=== PATIENT | male | born 1965 | race Caucasian/White ===

== ENCOUNTER 2017-03-12 15:21 | Emergency (ER) | payer MEDICARE ==
[2017-03-12 15:56] VITALS: BP 165/93
--- NOTE | 2017-03-12 16:49 | ED Physician Documentation ---
History of Present Illness - Stated complaint Stated Complaint: FLU SYMPTOMS - Chief complaint Chief Complaint: General - Additonal information Additional information: hx from pt 51 male fever cough congestion body aches fatigue no sick contacts no travel has COPD never admitted for COPD using his rescue inhaler a few times a day Review of Systems Constitutional: reports: Fever, Chills, Myalgias Nose: reports: Congestion Respiratory: reports: Cough GI: denies: Abdominal Pain Endocrine: denies: Easy bruising / bleeding Immunocompromised: denies: Immunocompromised PD PAST MEDICAL HISTORY - Past Medical History Past Medical History: Yes Respiratory: COPD Endocrine/Autoimmune: Type 2 diabetes Musculoskeletal: Osteoporosis, Gout - Past Surgical History Past Surgical History: Yes General: Appendectomy, Hiatal hernia repair - Present Medications Home Medications: Ambulatory Orders Medication Instructions Recorded Confirmed Benzonatate [Tessalon] 100 mg PO TID PRN #20 capsule 03/12/17 guaiFENesin/DEXTROMETHORPHAN 10 ml PO Q6H PRN #120 ml 03/12/17 [Robitussin Dm] predniSONE [Deltasone] 60 mg PO DAILY 5 Days tablet 03/12/17 - Allergies Allergies/Adverse Reactions: Allergies Allergy/AdvReac Type Severity Reaction Status Date / Time No Known Drug Allergies Allergy Verified 03/12/17 15:56 - Social History Does the pt smoke?: No Smoking Status: Never smoker Does the pt drink ETOH?: No Does the pt have substance abuse?: No - Immunizations Immunizations are current?: Yes - POLST Patient has POLST: No PD ED PE NORMAL - Vitals Vital signs reviewed: Yes - General General: Alert and oriented X 3 - HEENT HEENT: Atraumatic. No: Ears normal (dull but not bulging or erythematous), Pharynx benign (mild erythema 2/2 cough, no exudate or swelling) - Neck Neck: Supple, no meningeal sign - Cardiac Cardiac: RRR - Respiratory Respiratory: No respiratory distress, Clear bilaterally - Abdomen Abdomen: Soft, Non tender - Derm Derm: Normal color - Neuro Neuro: Alert and oriented X 3 Results - Vitals Vitals: Vital Signs - 24 hr 03/12/17 15:51 Temperature 36 C L Heart Rate 93 Respiratory 20 Rate Blood Pressure 165/93 H O2 Saturation 97 Oxygen O2 Source Room air - Labs Labs: Laboratory Tests 03/12/17 16:00 Influenza A (Rapid) Negative Influenza B (Rapid) Negative Influenza Types A,B Ag - - Rads (name of study) CXR Radiology: See rad report (no acute) Departure - Departure Disposition: 01 Home, Self Care Clinical Impression: Viral URI with cough, COPD exacerbation Condition: Good Instructions: ED Viral Syndrome, ED COPD Flare Follow-Up: YUNIOR GONZALEZ [Primary Care Provider] - Prescriptions: Benzonatate [Tessalon] 100 mg PO TID PRN #20 capsule PRN Reason: to ease cough guaiFENesin/DEXTROMETHORPHAN [Robitussin Dm] 10 ml PO Q6H PRN #120 ml PRN Reason: Cough predniSONE [Deltasone] 60 mg PO DAILY 5 Days tablet Comments: The chest xray does not show pneumonia and the flu swabs were negative Your symptoms are likely due to a virus - this does not make you any less ill but means antibiotics will not help. I have prescribed medications to ease your symptoms and keep your COPD under control You should also use your albuterol inhaler every 6 hr until your cough is better Forms: Activity restrictions
--- NOTE | 2017-03-12 17:02 | XRAY Preliminary Report ---
Exam: XR CHEST 2 VIEW PA/LAT IMPRESSION: Normal 2-view chest radiography. [facility] SITE ID: [id number]
--- NOTE | 2017-03-12 17:09 | XRAY Report ---
EXAM: CHEST RADIOGRAPHY EXAM DATE: 03/12/2017 04:49 PM. CLINICAL HISTORY: Productive cough for 2 days. COMPARISON: None. TECHNIQUE: 2 views. FINDINGS: Lungs/Pleura: No focal opacities evident. No pleural effusion. No pneumothorax. Normal volumes. Mediastinum: Heart and mediastinal contours are unremarkable. Other: None. IMPRESSION: Normal 2-view chest radiography. [facility] Referring Provider Line: [phone] SITE ID: [id number]
== END 2017-03-12 17:30 | disposition home or self-care (01) ==
LOC: ED 15:21
DX: J06.9 Acute upper respiratory infection, unspecified (principal); B97.89 Other viral agents as the cause of diseases classified elsewhere; R05 Cough; J44.1 Chronic obstructive pulmonary disease with (acute) exacerbation; E11.9 Type 2 diabetes mellitus without complications
CPT/HCPCS: 71020; 87275; 87276; 99283

== ENCOUNTER 2018-03-21 14:38 | Outpatient (CLI) | payer MEDICARE | END 2018-03-21 14:39 | disposition critical access hospital (66) | LOC: EMS 14:38 | PROVIDERS: ATTEND Surgery | DX: R07.9 Chest pain, unspecified (principal) | CPT/HCPCS: A0425; A0427 ==

== ENCOUNTER 2018-11-12 07:07 | Day surgery (SDC) | payer MEDICARE ==
[2018-11-12] MEDS ORDERED: LACTATED RINGERS 1,000 ML IV ONE (07:39)
[2018-11-12] MEDS ORDERED: fentaNYL 250 MCG/5 ML VIAL IVP ONE (09:39)
[2018-11-12] MEDS ORDERED: MIDAZOLAM 2 MG/2 ML VIAL IVP ONE (09:39)
[2018-11-12 10:21] VITALS: BP 122/79
== END 2018-11-12 07:08 | disposition home or self-care (01) ==
LOC: SDS 07:07
PROVIDERS: ATTEND Internal Medicine Gastroenterology
PROC: 0DBN8ZZ Excision of Sigmoid Colon, Via Natural or Artificial Opening Endoscopic (ICD-10-PCS; 2018-11-12)
PROC: 0DBM8ZZ Excision of Descending Colon, Via Natural or Artificial Opening Endoscopic (ICD-10-PCS; 2018-11-12)
PROC: 0DBL8ZZ Excision of Transverse Colon, Via Natural or Artificial Opening Endoscopic (ICD-10-PCS; 2018-11-12)
PROC: 0DBH8ZX Excision of Cecum, Via Natural or Artificial Opening Endoscopic, Diagnostic (ICD-10-PCS; principal; 2018-11-12 08:30)
DX: Z12.11 Encounter for screening for malignant neoplasm of colon (principal); D12.4 Benign neoplasm of descending colon; D12.5 Benign neoplasm of sigmoid colon; D12.3 Benign neoplasm of transverse colon; K64.5 Perianal venous thrombosis; K63.9 Disease of intestine, unspecified; K57.30 Diverticulosis of large intestine without perforation or abscess without bleeding; E11.9 Type 2 diabetes mellitus without complications; J44.9 Chronic obstructive pulmonary disease, unspecified; I10 Essential (primary) hypertension; K43.2 Incisional hernia without obstruction or gangrene; F17.210 Nicotine dependence, cigarettes, uncomplicated; E66.9 Obesity, unspecified; Z68.30 Body mass index [BMI] 30.0-30.9, adult
CPT/HCPCS: 45380; 45385; J7120

== ENCOUNTER 2018-12-06 14:25 | Outpatient (CLI) | payer MEDICARE, MEDICAID ==
[2018-12-06 14:36] LABS: BASOPHILS # (AUTO) 0.1 10^3/uL (0.0-0.1); BASOPHILS % (AUTO) 0.8 %; EOSINOPHILS # (AUTO) 0.1 10^3/uL (0.0-0.7); EOSINOPHILS % (AUTO) 1.5 %; HGB - HEMOGLOBIN 14.1 g/dL (14.0-18.0); LYMPHOCYTES # (AUTO) 3.2 10^3/uL (1.5-3.5); LYMPHOCYTES % (AUTO) 36.3 %; MEAN CORPUSCULAR HEMOGLOBIN 30.6 pg (27.0-31.0); MEAN CORPUSCULAR VOLUME 92.6 fL (80.0-94.0); MEAN PLATELET VOLUME 8.9 fL (7.4-11.4); MONOCYTES # (AUTO) 0.6 10^3/uL (0.0-1.0); MONOCYTES % (AUTO) 6.6 %; NEUTROPHILS # (AUTO) 4.7 10^3/uL (1.5-6.6); NEUTROPHILS % (AUTO) 53.7 %; PLT - PLATELET COUNT 275 10^3/uL (130-450); RED BLOOD COUNT 4.61 10^6/uL (4.70-6.10); RED CELL DISTRIBUTION WIDTH 12.6 % (12.0-15.0); WHITE BLOOD COUNT 8.8 x10^3/uL (4.8-10.8)
[2018-12-06 14:53] LABS: BILIRUBIN,URINE NEGATIVE (NEGATIVE); GLUCOSE, URINE (UA) NEGATIVE (NEGATIVE); KETONES,URINE (UA) NEGATIVE (NEGATIVE); LEUKOCYTE ESTERASE, URINE NEGATIVE (NEGATIVE); NITRITE,URINE NEGATIVE (NEGATIVE); OCCULT BLOOD,URINE NEGATIVE (NEGATIVE); PH,URINE 5.5 PH (5.0-7.5); PROTEIN,URINE 30 mg/dL (NEGATIVE); UROBILINOGEN,URINE 0.2 (NORMAL) E.U./dL (NORMAL)
[2018-12-06 14:59] LABS: ALBUMIN 4.3 g/dL (3.2-5.5); ALBUMIN/GLOBULIN RATIO 1.3 (1.0-2.2); BILIRUBIN,TOTAL 0.3 mg/dL (0.2-1.0); CALCIUM 9.4 mg/dL (8.5-10.3); CLARITY,URINE CLEAR (CLEAR); CREATININE 0.5 mg/dL (0.6-1.2); TOTAL PROTEIN 7.5 g/dL (6.7-8.2)
[2018-12-06 15:13] LABS: BACTERIA,URINE None Seen /HPF (None Seen); RBC,URINE None Seen /HPF (0-5); SQUAMOUS EPITHELIAL CELL,UR NONE SEEN (<= Few)
== END 2018-12-06 14:26 | disposition home or self-care (01) ==
LOC: LAB 14:25
PROVIDERS: ATTEND Internal Medicine Gastroenterology
DX: E11.9 Type 2 diabetes mellitus without complications (principal)
CPT/HCPCS: 36415; 80053; 81001; 85025

== ENCOUNTER 2018-12-14 12:09 | Outpatient (CLI) | payer MEDICARE ==
--- NOTE | 2018-12-15 15:41 | XRAY Report ---
Reason: RIGHT KNEE PAIN Procedure Date: 12/14/2018 Accession Number: [id number] / [id number] Procedure: XR - Knee 2 View RT CPT Code: FULL RESULT: EXAM: RIGHT KNEE RADIOGRAPHY. EXAM DATE: 12/14/2018 12:37 PM. CLINICAL HISTORY: Right knee pain. COMPARISON: None. TECHNIQUE: 2 views. FINDINGS: Bones: Normal. No fractures or bone lesions. Joints: Mild degenerative joint disease in all 3 compartments. No effusion. Soft Tissues: Normal. No soft tissue swelling. IMPRESSION: Mild degenerative joint disease. No fracture or effusion. [facility]
== END 2018-12-14 12:10 | disposition home or self-care (01) ==
LOC: DI 12:09
PROVIDERS: ATTEND Physician Assistant Medical
DX: M17.11 Unilateral primary osteoarthritis, right knee (principal)

== ENCOUNTER 2018-12-16 07:55 | Day surgery (SDC) | payer MEDICARE ==
--- NOTE | 2018-12-16 08:11 | ANESTHESIA ---
Pre-Anesthesia VS, & Labs - Diagnosis ventral incision hernia - Procedure Open ventral hernia repair w/mesh Height 5 ft 5 in Body Mass Index 33.3 - NPO >8 hours - Lab Results Lab results reviewed: Yes Home Medications and Allergies Home Medications: Ambulatory Orders Albuterol 1 puffs IH DAILY PRN 12/16/18 Metformin HCl [Fortamet] 500 mg PO DAILY 03/21/18 Acetaminophen [Tylenol Extra Strength] 1,500 mg PO TID 11/12/18 Atorvastatin Calcium 40 mg PO QPM 11/12/18 Glipizide 5 mg PO DAILY 11/12/18 Losartan [Cozaar] 25 mg PO DAILY 11/12/18 Prazosin [Minipress] 1 mg PO QPM 11/12/18 Quetiapine Fumarate [Seroquel] 50 mg PO DAILY 11/12/18 Allergies/Adverse Reactions: Allergies Allergy/AdvReac Type Severity Reaction Status Date / Time naproxen [From Aleve] AdvReac skin crawls Verified 11/12/18 07:49 Anes History & Medical History - Anesthetic History Anesthesia Complications: reports: No previous complications Family history of Anesthesia Complications: Denies Family history of Malignant Hyperthermia: Denies - Medical History Cardiovascular: reports: Hypertension (>100DBP this AM), High cholesterol Pulmonary: reports: COPD Gastrointestinal: reports: Colon polyps Musculoskeletal: reports: Osteoporosis, Gout Endocrine/Autoimmune: reports: Type 2 diabetes Smoking Status: Never smoker - Surgical History General: Appendectomy, Other Results - EKG Results EKG Comparison: Reviewed EKG (NSR w inferior Q waves, 2,3,AVF) Exam General: Alert, Oriented x3 Dental: Loose/Frag (only one tooth remains intact at lower left) Mouth Openin Fingerbreadth Neck Mobility: Normal Mallampati classification: II Thyromental Distance: 4-6 cm Respiratory: Lungs clear, Normal breath sounds, Decreased breath sounds Cardiovascular: Regular rate Neurological: Normal speech Mental/Cognitive Status: Alert/Oriented X3, Normal for patient Cognitive Status: Within normal limits Plan Anesthesia Type: General (case cancelled/delayed by Dr. Garcia d/t Q waves present on EKG. Pt has had multiple ER visits for chest pain/pressure (all negative) but states he has been "taking it easy" to avoid chest aopin and exhaustion like in the past. Blood glucose also 295 this AM. BP 146/100, HR 92. Pt agrees to plan of seeking cardiac clearance.) Consent for Procedure(s) Verified and Reviewed: No Code Status: Attempt Resuscitation ASA classification: 2-Mild systemic disease Is this case an emergency?: No
[2018-12-16 08:21] VITALS: BP 149/100
[2018-12-16] MEDS ORDERED: CEFAZOLIN SODIUM IN 0.9 % NACL 0 GM/0 ML BAG IV ONE (08:22)
[2018-12-16] MEDS ORDERED: LACTATED RINGERS 1,000 ML IV ONE (08:38)
== END 2018-12-16 07:56 | disposition home or self-care (01) ==
LOC: SDS 07:55
PROVIDERS: ATTEND Internal Medicine Gastroenterology
DX: K43.2 Incisional hernia without obstruction or gangrene (principal); R94.31 Abnormal electrocardiogram [ECG] [EKG]; Z53.09 Procedure and treatment not carried out because of other contraindication

== ENCOUNTER 2018-12-31 09:50 | Outpatient (CLI) | payer MEDICARE ==
--- NOTE | 2018-12-31 12:31 | MRI Report ---
Reason: RT KNEE PAIN, GAIT INSTABILITY Procedure Date: 12/31/2018 Accession Number: [id number] / [id number] Procedure: MRI - Knee RT W/O CPT Code: FULL RESULT: EXAM: RIGHT KNEE MRI WITHOUT CONTRAST EXAM DATE: 12/31/2018 10:55 AM. CLINICAL HISTORY: Right knee pain, gait instability. COMPARISON: None. TECHNIQUE: Multiplanar, multisequence T1-weighted and fluid-sensitive sequences of the knee without contrast. Other: None. FINDINGS: Bones: No fracture or bone lesion. Minimal reactive edema medial compartment. Small to moderate tricompartmental osteophytes, most prominent at the medial compartment. Moderate proximal patellar enthesophyte. Articular Cartilage: Deep partial thickness loss central aspect medial compartment. Shallow partial thickness loss central to posterior aspect lateral compartment. Small region deep partial thickness loss and fissuring/tearing at the central trochlea. Shallow irregularity/fissuring at the medial and lateral patellar facets. Medial Meniscus: Deep partial thickness radial tear at the junction of the posterior horn and root. Mild extrusion of the body into the medial gutter. Lateral Meniscus: The lateral meniscus is intact. Cruciate Ligaments: The anterior and posterior cruciate ligaments are intact. Collateral Ligaments: The medial collateral and lateral collateral ligamentous structures are intact. Tendons: Mild quadriceps and patellar tendinopathy. Semimembranosus and popliteus tendons are unremarkable. Musculature: Ill-defined 1.1 cm focus of fluid-sensitive hyperintense signal with interspersed fat at the deep aspect lateral head gastrocnemius muscle. Other: Minimal joint effusion. Minimal popliteal cyst. No loose bodies. The medial and lateral retinacula are intact. Subcutaneous soft tissues unremarkable. Mild reactive edema in the anterior fat pads. IMPRESSION: 1. Deep partial thickness radial tear posterior horn and root medial meniscus. 2. Mild to moderate tricompartmental cartilage loss, most prominent at the patellofemoral joint. 3. Mild quadriceps and patellar tendinopathy. 4. Minimal joint effusion. 5. Minimal popliteal cyst. 6. Ill-defined 1.1 cm focus of fluid sensitive hyperintense signal at the deep aspect lateral head gastrocnemius muscle, suggestive of vascular malformation, likely slow flow venous/lymphatic. [facility]
== END 2018-12-31 09:51 | disposition home or self-care (01) ==
LOC: DI 09:50
PROVIDERS: ATTEND Physician Assistant Medical
DX: S83.241A Other tear of medial meniscus, current injury, right knee, initial encounter (principal); M25.461 Effusion, right knee; M67.961 Unspecified disorder of synovium and tendon, right lower leg; M71.21 Synovial cyst of popliteal space [Baker], right knee

== ENCOUNTER 2019-04-18 08:00 | Outpatient (CLI) | payer MEDICARE ==
[2019-04-18 19:26] LABS: BASOPHILS % (AUTO) 0.5 %; EOSINOPHILS # (AUTO) 0.2 10^3/uL (0.0-0.7); EOSINOPHILS % (AUTO) 1.8 %; HGB - HEMOGLOBIN 14.9 g/dL (14.0-18.0); LYMPHOCYTES # (AUTO) 3.3 10^3/uL (1.5-3.5); LYMPHOCYTES % (AUTO) 40.3 %; MEAN CORPUSCULAR HEMOGLOBIN 32.2 pg (27.0-31.0); MEAN CORPUSCULAR HGB CONC 33.3 g/dL (32.0-36.0); MEAN CORPUSCULAR VOLUME 96.5 fL (80.0-94.0); MEAN PLATELET VOLUME 9.9 fL (7.4-11.4); MONOCYTES # (AUTO) 0.5 10^3/uL (0.0-1.0); MONOCYTES % (AUTO) 6.3 %; NEUTROPHILS # (AUTO) 4.1 10^3/uL (1.5-6.6); NEUTROPHILS % (AUTO) 50.2 %; PLT - PLATELET COUNT 250 10^3/uL (130-450); RED BLOOD COUNT 4.63 10^6/uL (4.70-6.10); RED CELL DISTRIBUTION WIDTH 12.8 % (12.0-15.0); WHITE BLOOD COUNT 8.2 x10^3/uL (4.8-10.8)
[2019-04-18 19:55] LABS: HEMOGLOBIN A1C 1.24 g/dL; HEMOGLOBIN A1C % 9.7 % (4.6-6.2)
[2019-04-18 20:11] LABS: ALBUMIN 4.4 g/dL (3.2-5.5); ALBUMIN/GLOBULIN RATIO 1.5 (1.0-2.2); ALKALINE PHOSPHATASE 61 IU/L (42-121); ALT ALANINE AMINOTRANSFERASE 21 IU/L (10-60); AST ASPARTATE AMINOTRANSFERASE 20 IU/L (10-42); BILIRUBIN,TOTAL 0.6 mg/dL (0.2-1.0); BUN - BLOOD UREA NITROGEN 18 mg/dL (6-20); CARBON DIOXIDE - CO2 22 mmol/L (21-32); CHLORIDE 104 mmol/L (101-111); CHOL/HDL RATIO 7.6 (<5.0); CHOLESTEROL 221 mg/dL; CREATININE 0.6 mg/dL (0.6-1.2); GFR - MDRD 141 (>89); GLUCOSE 218 mg/dL (70-100); HDL CHOLESTEROL 29 mg/dL; SODIUM 136 mmol/L (135-145); TOTAL PROTEIN 7.3 g/dL (6.7-8.2)
[2019-04-18 20:52] LABS: LDL CHOLESTEROL,DIRECT 62 mg/dL; LDLD/HDL RATIO 2.1 (<3.6)
[2019-04-18 21:11] LABS: CREATININE,URINE 233.5 mg/dL; MICROALBUM/CREATININE RATIO,UR 886.1 ug/mg (<30.0); MICROALBUMIN,URINE 206.9 mg/dL (0-300.0)
== END 2019-04-18 23:59 | disposition home or self-care (01) ==
LOC: LAB.N 08:00
PROVIDERS: ATTEND Family Medicine
DX: E11.9 Type 2 diabetes mellitus without complications (principal); E78.5 Hyperlipidemia, unspecified; I10 Essential (primary) hypertension
CPT/HCPCS: 36415; 80053; 80061; 82043; 82570; 83036; 83721; 84443; 85025

== ENCOUNTER 2019-08-05 11:38 | Outpatient (CLI) | payer MEDICARE, MEDICAID ==
[2019-08-05 13:47] LABS: HB2 TOTAL 14.7 g/dL; HEMOGLOBIN A1C 1.13 g/dL; HEMOGLOBIN A1C % 9.2 % (4.6-6.2)
[2019-08-05 13:53] LABS: ALBUMIN 4.5 g/dL (3.2-5.5); ALBUMIN/GLOBULIN RATIO 1.5 (1.0-2.2); ALKALINE PHOSPHATASE 57 IU/L (42-121); ALT ALANINE AMINOTRANSFERASE 23 IU/L (10-60); AST ASPARTATE AMINOTRANSFERASE 24 IU/L (10-42); BILIRUBIN,TOTAL 0.4 mg/dL (0.2-1.0); BUN - BLOOD UREA NITROGEN 18 mg/dL (6-20); CALCIUM 9.6 mg/dL (8.5-10.3); CARBON DIOXIDE - CO2 21 mmol/L (21-32); CHLORIDE 103 mmol/L (101-111); CHOL/HDL RATIO 6.6 (<5.0); CHOLESTEROL 238 mg/dL; CREATININE 0.7 mg/dL (0.6-1.2); GLUCOSE 225 mg/dL (70-100); HDL CHOLESTEROL 36 mg/dL; SODIUM 137 mmol/L (135-145); TOTAL PROTEIN 7.6 g/dL (6.7-8.2)
[2019-08-05 14:19] LABS: LDL CHOLESTEROL,DIRECT 104 mg/dL; LDLD/HDL RATIO 2.9 (<3.6)
== END 2019-08-05 23:59 | disposition home or self-care (01) ==
LOC: LAB.WCP 11:38
PROVIDERS: ATTEND Family Medicine
DX: I10 Essential (primary) hypertension (principal); E11.9 Type 2 diabetes mellitus without complications; E78.5 Hyperlipidemia, unspecified
CPT/HCPCS: 36415; 80053; 80061; 83036; 83721

== ENCOUNTER 2020-01-01 14:17 | Outpatient (CLI) | payer MEDICARE, MEDICAID ==
[2020-01-01 19:12] LABS: BUN - BLOOD UREA NITROGEN 21 mg/dL (6-20); CALCIUM 9.8 mg/dL (8.5-10.3); CARBON DIOXIDE - CO2 23 mmol/L (21-32); CHLORIDE 104 mmol/L (101-111); CHOL/HDL RATIO 4.7 (<5.0); CHOLESTEROL 161 mg/dL; CREATININE 0.8 mg/dL (0.6-1.2); GLUCOSE 116 mg/dL (70-100); HDL CHOLESTEROL 34 mg/dL; LDL CHOLESTEROL,CALCULATED 58 mg/dL; LDL/HDL RATIO 1.7 (<3.6); SODIUM 138 mmol/L (135-145); VLDL CHOLESTEROL 69 mg/dL
== END 2020-01-01 23:59 | disposition home or self-care (01) ==
LOC: LAB.WCP 14:17
PROVIDERS: ATTEND Family Medicine
DX: E11.9 Type 2 diabetes mellitus without complications (principal); E78.5 Hyperlipidemia, unspecified
CPT/HCPCS: 36415; 80048; 80061; 82043; 82570; 83036; 83721

== ENCOUNTER 2020-01-02 07:00 | Outpatient (CLI) | payer MEDICARE, MEDICAID ==
[2020-01-02 19:11] LABS: CREATININE,URINE 134.6 mg/dL; MICROALBUM/CREATININE RATIO,UR 428.7 ug/mg (<30.0); MICROALBUMIN,URINE 57.7 mg/dL (0-300.0)
== END 2020-01-02 23:59 | disposition home or self-care (01) ==
LOC: LAB.R 07:00
PROVIDERS: ATTEND Family Medicine
DX: E11.9 Type 2 diabetes mellitus without complications (principal); E78.5 Hyperlipidemia, unspecified
CPT/HCPCS: 82043; 82570

== ENCOUNTER 2020-03-25 08:00 | Outpatient (CLI) | payer MEDICARE, MEDICAID ==
--- NOTE | 2020-03-25 13:24 | XRAY Report ---
PROCEDURE: Chest 2 View X-Ray INDICATIONS: COUGH TECHNIQUE: 2 view(s) of the chest. COMPARISON: None. FINDINGS: Surgical changes and devices: None. Lungs and pleura: No pleural effusions or pneumothorax. Lungs are clear. Mediastinum: Mediastinal contours are normal. Heart size is normal. Bones and chest wall: No suspicious bony abnormalities. Soft tissues appear unremarkable. IMPRESSION: No acute cardiopulmonary abnormality. Reviewed by: Keyshawn Perea on 03/25/2020 1:22 PM [facility] Approved by: Keyshawn Perea on 03/25/2020 1:22 PM [facility] Station ID: [id number]
== END 2020-03-25 23:59 | disposition home or self-care (01) ==
LOC: DI.N 08:00
PROVIDERS: ATTEND Family Medicine
DX: R05 Cough (principal); Z20.828 Contact with and (suspected) exposure to other viral communicable diseases
CPT/HCPCS: 71046; 87275; 87276; U0004